=== PATIENT | female | born 1935 | race Caucasian/White ===

== ENCOUNTER 2019-11-24 19:06 | Emergency (ER) | payer MEDICARE, BC ==
[2019-11-24] MEDS ORDERED: Sodium Chloride 0.9% 1,000 ML IV ONE (19:50)
[2019-11-24] MEDS ORDERED: Sodium Chloride 0.9% 10 ML Syringe FLUSH PRN (19:54)
--- NOTE | 2019-11-24 20:41 | EDM.PDOC ---
ED HPI GENERAL MEDICAL PROBLEM - General Chief Complaint: General Stated Complaint: NO APPETITE Time Seen by Provider: 11/24/19 20:06 Source of Information: Reports: Patient, Family, RN Notes Reviewed History Limitations: Reports: No Limitations - History of Present Illness INITIAL COMMENTS - FREE TEXT/NARRATIVE: 83-year-old female presents emergency department a complaint of weakness, she states been feeling this way for about 2 days has had some sweats at home no fevers she does admit to tick exposure when she is been out in the garden maybe about a week ago was bit by a tick complains of body aches no shortness of breath no chest pain no problems with urination no abdominal pain denies Pain Score (Numeric/FACES): 0 - Related Data Allergies Allergy/AdvReac Type Severity Reaction Status Date / Time codeine Allergy Rash Verified 11/24/19 19:20 morphine Allergy Rash Verified 11/24/19 19:20 Home Meds: Home Meds Aspirin [Adult Low Dose Aspirin EC] 81 mg PO DAILY 03/20/13 [History] Calcium Carbonate [Calcium] 600 mg PO DAILY 03/20/13 [History] Cyanocobalamin (Vitamin B-12) [Vitamin B-12] 500 mcg PO DAILY 03/20/13 [History] Ibuprofen [Advil] 200 mg PO Q4HR PRN 03/20/13 [History] Levothyroxine Sodium [Synthroid] 88 mcg PO DAILY 03/20/13 [History] Multivitamin [Multi Vitamin Daily] 1 each PO DAILY 03/20/13 [History] Past Medical History HEENT History: Reports: Hard of Hearing, Impaired Vision Cardiovascular History: Reports: High Cholesterol Gastrointestinal History: Reports: GERD 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: Musculoskeletal History: Reports: Fracture Other Musculoskeletal History: wrist Psychiatric History: Reports: Anxiety Endocrine/Metabolic History: Reports: Hypothyroidism - Infectious Disease History Infectious Disease History: Reports: Chicken Pox, Measles, Mumps - Past Surgical History GI Surgical History: Reports: Cholecystectomy Female Surgical History: Reports: Hysterectomy Social & Family History - Tobacco Use Smoking Status *Q: Never Smoker Second Hand Smoke Exposure: No - Caffeine Use Caffeine Use: Reports: Soda, Tea - Recreational Drug Use Recreational Drug Use: No ED ROS GENERAL - Review of Systems Review Of Systems: See Below Constitutional: Reports: Chills HEENT: Reports: No Symptoms Respiratory: Reports: No Symptoms Cardiovascular: Reports: No Symptoms GI/Abdominal: Reports: No Symptoms : Reports: No Symptoms Musculoskeletal: Reports: Muscle Pain Skin: Reports: No Symptoms Neurological: Reports: No Symptoms ED EXAM, GENERAL - Physical Exam Exam: See Below Exam Limited By: No Limitations General Appearance: Alert, WD/WN, No Apparent Distress Ears: Normal External Exam, Normal Canal, Hearing Grossly Normal, Normal TMs Nose: Normal Inspection, Normal Mucosa, No Blood Throat/Mouth: Normal Inspection, Normal Lips, Normal Teeth, Normal Gums, Normal Oropharynx, Normal Voice, No Airway Compromise Head: Atraumatic, Normocephalic Neck: Normal Inspection, Supple, Non-Tender, Full Range of Motion Respiratory/Chest: No Respiratory Distress, Lungs Clear, Normal Breath Sounds, No Accessory Muscle Use, Chest Non-Tender Cardiovascular: Regular Rate, Rhythm, No Murmur GI/Abdominal: Soft, Non-Tender Back Exam: Normal Inspection, Full Range of Motion. No: CVA Tenderness (R), CVA Tenderness (L) Extremities: No Pedal Edema Course - Vital Signs Last Recorded V/S: Last Vital Signs Temp 100 F 11/24/19 19:29 Pulse 71 11/24/19 21:36 Resp 16 11/24/19 21:36 BP 95/37 L 11/24/19 21:36 Pulse Ox 99 11/24/19 21:36 - Orders/Labs/Meds Orders: Active Orders 24 hr Category Date Time Status Peripheral IV Care [RC] . DIRECTED Care 11/24/19 19:55 Active Chest 1V Frontal [CR] Stat Exams 11/24/19 20:38 Taken Doxycycline [Vibramycin] 100 mg Med 11/24/19 21:36 Active Sodium Chloride 0.9% [Normal Saline] 100 ml IV ONETIME Sodium Chloride 0.9% [Saline Flush] Med 11/24/19 19:54 Active 10 ml FLUSH ASDIRECTED PRN Peripheral IV Insertion Adult [OM.PC] Routine Oth 11/24/19 19:54 Ordered Medication Orders Doxycycline Hyclate 100 mg/ (Sodium Chloride) 100 mls @ 100 mls/hr IV ONETIME ONE Stop: 11/24/19 22:35 Sodium Chloride (Saline Flush) 10 ml FLUSH ASDIRECTED PRN PRN Reason: Keep Vein Open Labs: Laboratory Tests 11/24/19 11/24/19 11/24/19 Range/Units 20:11 20:13 20:13 WBC 4.0 L (4.5-11.0) K/uL RBC 4.16 (3.30-5.50) M/uL Hgb 12.3 (12.0-15.0) g/dL Hct 38.1 (36.0-48.0) % MCV 92 (80-98) fL MCH 30 (27-31) pg MCHC 32 (32-36) % Plt Count 179 (150-400) K/uL Neut % (Auto) 88 H (36-66) % Lymph % (Auto) 9 L (24-44) % [place] % (Auto) 4 (2-6) % Eos % (Auto) 0 L (2-4) % Baso % (Auto) 0 (0-1) % Sodium 135 L (140-148) mmol/L Potassium 3.2 L (3.6-5.2) mmol/L Chloride 100 (100-108) mmol/L Carbon Dioxide 24 (21-32) mmol/L Anion Gap 14.2 H (5.0-14.0) mmol/L BUN 14 (7-18) mg/dL Creatinine 1.2 H (0.6-1.0) mg/dL Est Cr Clr Drug Dosing 25.86 mL/min Estimated GFR (MDRD) 43 L (>60) Glucose 172 H (74-106) mg/dL Lactic Acid (0.4-2.0) mmol/L Calcium 8.0 L (8.5-10.1) mg/dL Total Bilirubin (0.2-1.0) mg/dL Direct Bilirubin (0.0-0.2) mg/dL Indirect Bilirubin AST (15-37) U/L ALT (12-78) U/L Alkaline Phosphatase (46-116) U/L Total Protein (6.4-8.2) g/dL Albumin (3.4-5.0) g/dL Globulin (2.3-3.5) g/dL Albumin/Globulin Ratio (1.2-2.2) TSH, Ultra Sensitive (0.358-3.740) uIU/mL Urine Color Other A (YELLOW) Urine Appearance Clear (CLEAR) Urine pH 6.5 (5.0-8.0) Ur Specific [place] 1.025 (1.008-1.030) Urine Protein 100 H (NEGATIVE) mg/dL Urine Glucose (UA) Negative (NEGATIVE) mg/dL Urine Ketones Negative (NEGATIVE) mg/dL Urine Occult Blood Moderate H (NEGATIVE) Urine Nitrite Negative (NEGATIVE) Urine Bilirubin Negative (NEGATIVE) Urine Urobilinogen 0.2 (0.2-1.0) EU/dL Ur Leukocyte Esterase Negative (NEGATIVE) Urine RBC Not seen (0-5) Urine WBC 0-5 (0-5) Ur Epithelial Cells Rare Urine Bacteria Not seen 11/24/19 11/24/19 11/24/19 Range/Units 20:13 20:13 20:13 WBC (4.5-11.0) K/uL RBC (3.30-5.50) M/uL Hgb (12.0-15.0) g/dL Hct (36.0-48.0) % MCV (80-98) fL MCH (27-31) pg MCHC (32-36) % Plt Count (150-400) K/uL Neut % (Auto) (36-66) % Lymph % (Auto) (24-44) % [place] % (Auto) (2-6) % Eos % (Auto) (2-4) % Baso % (Auto) (0-1) % Sodium (140-148) mmol/L Potassium (3.6-5.2) mmol/L Chloride (100-108) mmol/L Carbon Dioxide (21-32) mmol/L Anion Gap (5.0-14.0) mmol/L BUN (7-18) mg/dL Creatinine (0.6-1.0) mg/dL Est Cr Clr Drug Dosing mL/min Estimated GFR (MDRD) (>60) Glucose (74-106) mg/dL Lactic Acid 3.3 H (0.4-2.0) mmol/L Calcium (8.5-10.1) mg/dL Total Bilirubin 0.9 (0.2-1.0) mg/dL Direct Bilirubin 0.22 H (0.0-0.2) mg/dL Indirect Bilirubin 0.68 AST 70 H (15-37) U/L ALT 50 (12-78) U/L Alkaline Phosphatase 88 (46-116) U/L Total Protein 6.4 (6.4-8.2) g/dL Albumin 3.2 L (3.4-5.0) g/dL Globulin 3.2 (2.3-3.5) g/dL Albumin/Globulin Ratio 1.0 L (1.2-2.2) TSH, Ultra Sensitive 0.038 L (0.358-3.740) uIU/mL Urine Color (YELLOW) Urine Appearance (CLEAR) Urine pH (5.0-8.0) Ur Specific [place] (1.008-1.030) Urine Protein (NEGATIVE) mg/dL Urine Glucose (UA) (NEGATIVE) mg/dL Urine Ketones (NEGATIVE) mg/dL Urine Occult Blood (NEGATIVE) Urine Nitrite (NEGATIVE) Urine Bilirubin (NEGATIVE) Urine Urobilinogen (0.2-1.0) EU/dL Ur Leukocyte Esterase (NEGATIVE) Urine RBC (0-5) Urine WBC (0-5) Ur Epithelial Cells Urine Bacteria Meds: Medications Generic Name Dose Route Start Last Admin Trade Name Freq PRN Reason Stop Dose Admin Doxycycline Hyclate 100 mg/ 100 mls @ 100 mls/hr 11/24/19 21:36 Sodium Chloride IV 11/24/19 22:35 ONETIME ONE Sodium Chloride 10 ml 11/24/19 19:54 Saline Flush FLUSH ASDIRECTED PRN Keep Vein Open Discontinued Medications Generic Name Dose Route Start Last Admin Trade Name Freq PRN Reason Stop Dose Admin Sodium Chloride 1,000 mls @ 500 mls/hr 11/24/19 19:50 11/24/19 20:09 Normal Saline IV 11/24/19 21:49 500 mls/hr ONETIME ONE Administration Departure - Departure Time of Disposition: 21:59 Disposition: Home, Self-Care 01 Condition: Fair Clinical Impression: Body aches Tick bite Qualifiers: Encounter type: initial encounter Qualified Code(s): W57.XXXA - Bitten or stung by nonvenomous insect and other nonvenomous arthropods, initial encounter - Discharge Information Instructions: Tick Bite Information, Adult, [id number] Referrals: PCP,None [Primary Care Provider] - Forms: ED Department Discharge Additional Instructions: Take full course of antibiotics use Tylenol and Motrin as needed for body aches , please followup with your primary care provider in 3-5 days if not better, please call return to the emergency department with worsening of symptoms. Sepsis Event Note (ED) - Evaluation Sepsis Screening Result: No Definite Risk - Focused Exam Vital Signs: Vital Signs Temp Pulse Resp BP Pulse Ox 11/24/19 21:36 71 16 95/37 L 99 11/24/19 19:29 100 F 74 20 124/96 H 95 - My Orders Last 24 Hours: My Active Orders 11/24/19 20:38 Chest 1V Frontal [CR] Stat 11/24/19 21:36 Doxycycline [Vibramycin] 100 mg Sodium Chloride 0.9% [Normal Saline] 100 ml IV ONETIME - Assessment/Plan Last 24 Hours: My Active Orders 11/24/19 20:38 Chest 1V Frontal [CR] Stat 11/24/19 21:36 Doxycycline [Vibramycin] 100 mg Sodium Chloride 0.9% [Normal Saline] 100 ml IV ONETIME Plan: Assessment Acuity = acute Site and laterality = body aches, weakness Etiology = suspicious for tickborne illness Manifestations = none Location of injury = Home Lab values = WBC low at 4.0 consistent leukopenia sodium low at 135 consistent hyponatremia potassium low at 3.2 consistent hypokalemia creatinine elevated 1.2 consistent chronic renal failure stage G3 B lactic acid slightly elevated 3.3 consistent with lactic acidosis AST elevated at 70 consistent with elevated liver enzymes TSH subtherapeutic at 0.038 chest x-ray I did review films myself I cannot appreciate any acute process, the official read from radiology is pending, urinalysis shows large amount of blood nothing on micro Plan I did review lab work with her I did offer hospital admission she declined she did receive 100 mg dose IV of doxycycline in combination with 1 L fluids she would prefer to try this as outpatient at home therefore prescription written for doxycycline 100 mg p.o. twice daily x14 days follow-up primary care 3 to 5 days if not better This note was dictated using [employer] voice recognition software please call with any questions on syntax or grammar.
[2019-11-24] MEDS ORDERED: Doxycycline 100 MG in Sodium Chloride 0.9% 100 ML IV ONE (21:36)
--- NOTE | 2019-11-25 09:08 | CR ---
CHEST: Portable 11/24/2019 at 8:51 PM CLINICAL HISTORY:Fever COMPARISON:None FINDINGS: The heart size, pulmonary vascularity and hilar structures are normal. No infiltrate effusion or pneumothorax is seen. There are atherosclerotic changes in the aorta. IMPRESSION: No acute cardiopulmonary process.
== END 2019-11-24 23:32 | disposition home or self-care (01) ==
LOC: JP.ED 19:06
DX: T14.8XXA Other injury of unspecified body region, initial encounter (principal); R52 Pain, unspecified; R53.1 Weakness; E03.9 Hypothyroidism, unspecified; Z79.899 Other long term (current) drug therapy; Z88.5 Allergy status to narcotic agent; Z79.82 Long term (current) use of aspirin; W57.XXXA Bitten or stung by nonvenomous insect and other nonvenomous arthropods, initial encounter
CPT/HCPCS: 36415; 71045; 80048; 80076; 81001; 83605; 84443; 85025; 96365; 99285; J3490; J7040; J7050; 99283